=== PATIENT | female | born 1950 | race Caucasian/White ===

== ENCOUNTER → 2017-07-24 | Outpatient (CLI) | payer OTHER | END | disposition home or self-care (01) | LOC: LAB.O 14:34 | PROVIDERS: ATTEND Nurse Practitioner Family | DX: R07.9 Chest pain, unspecified (principal) ==

== ENCOUNTER 2017-10-18 13:59 | Emergency (ER) | payer OTHER ==
[2017-10-18 14:08] VITALS: TEMP 97.2
--- NOTE | 2017-10-18 14:22 | ED.PDOC ---
History of Present Illness - General Chief Complaint: Cardiovascular Problem Stated Complaint: chest pain Time Seen by Provider: 10/18/17 14:21 Source: patient Exam Limitations: no limitations - History of Present Illness Initial Comments: Megan Suarez 67 y/o female stated that for the last one week approximately had on and off right shoulder discomfort ,feeling of neck tightness and chest discomfort lasting for few minutes goes away and usually occurs while resting.She stated that when doing something that occupies her mind does not have it.At the er feels her throat a little bit tight.She DENIES CHEST PAIN SYMPTOMS.No cardiac problems or elevated blood pressure .Had ETT done 7 years ago when she had back pains and was normal.No diaphoresi,but slightly lightheaded this am. Timing/Duration: intermittent, other - almost a week ago-see hpi Improving Factors: nothing Worsening Factors: nothing Associated Symptoms: other - see hpi Allergies/Adverse Reactions: Allergies NO KNOWN ALLERGY Allergy (Verified 10/18/17 14:09) Review of Systems - Review of Systems EENTM: States: see HPI Cardiology: States: see HPI All other Systems: Reviewed and Negative, No Change from Baseline Past Medical History (General) - Patient Medical History Hx Congestive Heart Failure: No Hx Thyroid Disease: Yes Surgical History: other - right foot,bilateral cataract - Vaccination History Hx Influenza Vaccination: Yes Hx Pneumococcal Vaccination: No - Social History Hx Tobacco Use: Yes - for 10 years but quit 9 years ago Years Tobacco Use: 10 - quit 9 years ago Cigarettes Packs Per Day: 20 Hx Alcohol Use: No Hx Substance Use: No Hx Substance Use Treatment: No Hx Depression: No - Female History Patient is a Female of Child Bearing Age (10 -59 yrs old): No Family Medical History - Family History Father Hx Family Asthma: Yes - mom- age 95 Hx Cardiac Disease: Yes - parents Hx Family Cancer: Yes - dad -multiple myeloma Physical Exam - Physical Exam General Appearance: Alert, Comfortable, No apparent distress Eye Exam: bilateral normal Ears, Nose, Throat: hearing grossly normal, normal ENT inspection, normal pharynx Neck: non-tender, full range of motion, supple, normal inspection Respiratory: chest non-tender, lungs clear, normal breath sounds Cardiovascular/Chest: normal peripheral pulses, regular rate, rhythm, no murmur Peripheral Pulses: radial,right: 2+, radial,left: 2+ Gastrointestinal/Abdominal: normal bowel sounds, non tender, soft, no organomegaly Extremity: normal range of motion, non-tender, no pedal edema, no calf tenderness Neurologic: no motor/sensory deficits, alert, normal mood/affect, oriented x 3 Skin Exam: normal color, warm/dry Lymphatic: no adenopathy Progress - Progress Progress: 10/18/17 14:47 Last Vital Signs Temp 97.2 F L 10/18/17 14:00 Pulse 80 10/18/17 14:45 Resp 20 10/18/17 14:45 BP 139/79 10/18/17 14:45 Pulse Ox 100 10/18/17 14:45 - Results/Orders Results/Orders: Laboratory Tests 10/18/17 10/18/17 10/18/17 14:47 14:47 15:50 WBC 4.8 RBC 4.49 Hgb 13.4 Hct 39.4 MCV 87.7 MCH 30.0 MCHC 34.2 RDW 12.8 Plt Count 281 MPV 7.5 Absolute Neuts (auto) 2.50 Absolute Lymphs (auto) 1.70 Absolute Monos (auto) 0.40 Absolute Eos (auto) 0.20 Absolute Basos (auto) 0.00 Neutrophils % 52.9 Lymphocytes % 34.8 Monocytes % 7.6 Eosinophils % 4.1 Basophils % 0.6 PT 10.9 INR 0.960 PTT (SP) 34.1 D-Dimer, Quantitative < 230 Sodium 138 Potassium 3.5 L Chloride 103 Carbon Dioxide 28 Anion Gap 10.5 L BUN 13 Creatinine 0.58 L BUN/Creatinine Ratio 22.4 H Random Glucose 97 Serum Osmolality 275.7 Calcium 9.1 Magnesium 2.4 Total Bilirubin 0.4 Direct Bilirubin < 0.1 Indirect Bilirubin 0.3 AST 18 ALT 15 Alkaline Phosphatase 48 Creatine Kinase 111 CK-MB (CK-2) 2.4 CK-MB (CK-2) % Not Reportable Troponin I < 0.02 < 0.02 Serum Total Protein 7.1 Albumin 4.1 Recommended admission for OBS to hospital declined stating she lives close to the hospital and comes back if worsen stating she will follow up with her primary md in am She stated not feeling anything presently - EKG/XRAY/CT EKG: Sinus, nonspecific ST T wave Chg Comments: heart rate-78 XRAY: chest - no acute abnormalities Departure - Departure Clinical Impression: Chest discomfort Time of Disposition: 16:45 Disposition: Discharge to Home or Self Care Departure Forms: ED Discharge - Pt. Copy, Patient Portal Self Enrollment Instructions: DI for Chest Pain, DI for Atypical Chest Pain Referrals: Haven Schulte NP [Primary Care Provider] - 1-2 Weeks Additional Instructions: Continue with Baby aspirin 81 mg daily;Follow up with primary Md in am Call for appointment;RETURN TO ER as NEEDED
[2017-10-18] MEDS: ASPIRIN (CHEWABLE) 81 MG TAB PO ONE (14:42)
--- NOTE | 2017-10-18 15:04 | RAD ---
EXAM DESCRIPTION: Chest,1 View CLINICAL HISTORY: pain COMPARISON: None. FINDINGS: Cardiac silhouette is within normal limits. There is no focal parenchymal or pleural disease. Visualized osseous structures are within normal limits. IMPRESSION: No evidence of acute cardiopulmonary disease. Electronically signed by: Nima Bahena 10/18/2017 3:03 PM [facility]
[2017-10-18 16:54] VITALS: BP 127/81; O2SAT 99
== END 2017-10-18 16:54 | disposition home or self-care (01) ==
LOC: ER 13:59
DX: R07.89 Other chest pain (principal); E07.9 Disorder of thyroid, unspecified; Z87.891 Personal history of nicotine dependence

== ENCOUNTER 2019-11-21 11:59 | Emergency (ER) | payer OTHER ==
[2019-11-21] MEDS ORDERED: SODIUM CHLORIDE 0.9% (FLUSH) 10 ML SYG IV PRN (12:12)
[2019-11-21] MEDS ORDERED: SODIUM CHLORIDE 0.9% 1000ML 1,000 ML IVS ONE (12:13)
[2019-11-21] MEDS ORDERED: KETOROLAC TROMETHAMINE INJ 30 MG/ML VIAL IV ONE (12:13)
--- NOTE | 2019-11-21 12:15 | ED.PDOC ---
History of Present Illness - General Time Seen by Provider: 11/21/19 12:12 Source: patient - History of Present Illness Initial Comments: 69 yo female who presents with cc of upper back pain. Reports occurring on and off for a couple months. Recurred/worsening approx 2 hours ago while lifting something at home. Located to left upper back, constant, sharp, 2/10 severity, radiated around to her chest and with new onset chest tightness, no change with exertion or rest, took 2 baby aspirins with no relief. Reports some mild dyspnea as well. Also reported some mild "stomach" ache since this morning. No hx of similar sx's. No personal cardiac hx. Had a normal stress test 5-7 years ago. Allergies/Adverse Reactions: Allergies NO KNOWN ALLERGY Allergy (Verified 11/21/19 12:20) Home Medications: Ambulatory Orders Cyclobenzaprine HCl [Flexeril] 10 mg PO Q8H PRN 30 Days #30 tab 11/21/19 Review of Systems - Review of Systems Review of Systems: 11/21/19 12:15 as per HPI All other Systems: Reviewed and Negative Past Medical History (General) - Patient Medical History Hx Congestive Heart Failure: No Hx Thyroid Disease: Yes - Vaccination History Hx Influenza Vaccination: Yes Hx Pneumococcal Vaccination: No - Social History Hx Tobacco Use: Yes - for 10 years but quit 9 years ago Hx Alcohol Use: No Hx Substance Use: No Hx Substance Use Treatment: No Hx Depression: No Family Medical History - Family History Father Hx Family Asthma: Yes - mom- age 95 Hx Cardiac Disease: Yes - parents Hx Family Cancer: Yes - dad -multiple myeloma Physical Exam - Physical Exam General Appearance: Alert, No apparent distress Eye Exam: bilateral normal Ears, Nose, Throat: hearing grossly normal, normal ENT inspection, normal pharynx Neck: non-tender, full range of motion, supple, normal inspection Respiratory: lungs clear, normal breath sounds, no respiratory distress, no accessory muscle use, other - Chest tightness recreated on palpation of chest wall Cardiovascular/Chest: normal peripheral pulses, regular rate, rhythm, no edema, no gallop, no JVD, no murmur Peripheral Pulses: radial,right: 2+, radial,left: 2+ Gastrointestinal/Abdominal: non tender, soft, no organomegaly Back Exam: normal inspection, no CVA tenderness, no vertebral tenderness Extremity: normal range of motion, non-tender, normal inspection, no pedal edema, no calf tenderness Neurologic: inspector printed circuit boards II-XII nml as tested, no motor/sensory deficits, alert, normal mood/affect, oriented x 3 Skin Exam: normal color, warm/dry Progress - Progress Progress: 11/21/19 12:16 Upper back pain -suspect MSK in nature - acute muscle strain/spasm given history. Consider also ACS vs PNA vs other -vitals wnl on arrival, pt NAD, 2/ pain -check cardiac work-up, labs, CXR -1 L NS bolus, Toradol 30 mg IV 11/21/19 14:12 -Trop <0.02 x2 in ED over 2 hours. EKG pretty unremarkable. CXR shows no acute processes per my read. Pain is totally resolved now for 2 hours following IV fluids & Toradol. Vitals remain wnl. Remainder of labs pretty unremarkable as well. -Discussed findings with pt and diagnosis of acute upper back strain as well as expected course and continued home treatment. -Dc home in good condition. Advised close PCP f/u to discuss repeat stress testing as outpatient. Return warnings discussed at length. Denys Whitten MD Billing #[id number] - Results/Orders Results/Orders: 11/21/19 12:12 IV Care:Saline Lock per Protoc QSHIFT Telemetry ONCE Sodium Chloride 0.9% (Flush) [Saline Flush Syringe] 3 ml IV PRN PRN 11/21/19 12:15 EKG STAT 11/21/19 13:34 EKG Assessment ONCE 11/21/19 13:45 EKG STAT URINALYSIS Stat 11/22/19 09:00 Pulse Ox Daily Laboratory Results - last 24 hr 11/21/19 11/21/19 11/21/19 12:15 12:15 12:15 WBC 4.6 L RBC 4.71 Hgb 13.9 Hct 41.6 MCV 88.2 MCH 29.5 MCHC 33.4 RDW 13.4 Plt Count 261 MPV 8.1 Absolute Neuts (auto) 2.30 Absolute Lymphs (auto) 1.60 Absolute Monos (auto) 0.30 Absolute Eos (auto) 0.30 Absolute Basos (auto) 0.10 Neutrophils % 50.1 Lymphocytes % 34.0 Monocytes % 6.6 Eosinophils % 7.1 H Basophils % 2.2 H Sodium 138 Potassium 3.9 Chloride 99 L Carbon Dioxide 27 Anion Gap 15.9 BUN 25 H Creatinine 0.74 BUN/Creatinine Ratio 33.8 H Random Glucose 100 Serum Osmolality 280.2 Calcium 10.1 Total Bilirubin 0.6 AST 21 ALT 21 Alkaline Phosphatase 49 Troponin I < 0.02 B-Natriuretic Peptide 5.4 Serum Total Protein 7.0 Albumin 4.2 Globulin 2.8 Albumin/Globulin Ratio 1.5 11/21/19 13:41 WBC RBC Hgb Hct MCV MCH MCHC RDW Plt Count MPV Absolute Neuts (auto) Absolute Lymphs (auto) Absolute Monos (auto) Absolute Eos (auto) Absolute Basos (auto) Neutrophils % Lymphocytes % Monocytes % Eosinophils % Basophils % Sodium Potassium Chloride Carbon Dioxide Anion Gap BUN Creatinine BUN/Creatinine Ratio Random Glucose Serum Osmolality Calcium Total Bilirubin AST ALT Alkaline Phosphatase Troponin I < 0.02 B-Natriuretic Peptide Serum Total Protein Albumin Globulin Albumin/Globulin Ratio Departure - Departure Clinical Impression: Muscle strain of left upper back Qualifiers: Encounter type: initial encounter Qualified Code(s): S29.012A - Strain of muscle and tendon of back wall of thorax, initial encounter Time of Disposition: 14:15 Disposition: Discharge to Home or Self Care Condition: Good Instructions: DI for Chest Pain, Upper Back Pain (DC) Diet: resume usual diet Referrals: Haven Schulte NP [Primary Care Provider] - 1-2 Weeks Prescriptions: Cyclobenzaprine HCl [Flexeril] 10 mg PO Q8H PRN 30 Days #30 tab PRN Reason: Muscle Spasms Home Medications: Ambulatory Orders Cyclobenzaprine HCl [Flexeril] 10 mg PO Q8H PRN 30 Days #30 tab 11/21/19 Additional Instructions: Follow up closely with your PCP. Return if chest pain returns or worsens or other concerning symptoms develop such as pressure-like chest pain, shortness of breath, chest pain which worsens with exertion, etc... You may continue to take OTC ibuprofen 600 mg and Tylenol 650 mg every 6 hours as needed for acute upper back strain.
[2019-11-21] MEDS ORDERED: ASPIRIN (ENTERIC COATED) 325 MG TAB PO ONE (12:24)
[2019-11-21] MEDS ORDERED: ASPIRIN TABLET 325 MG TAB PO ONE (12:28)
--- NOTE | 2019-11-21 12:58 | RAD ---
EXAM DESCRIPTION: Chest,1 View CLINICAL HISTORY: 69 years Female, chest pain COMPARISON: Radiograph of the chest dated 10/18/2017. TECHNIQUE: AP radiograph of the chest was obtained. FINDINGS: Trachea is midline.The cardiomediastinal silhouette is normal in size. The pulmonary vasculature is within normal limits.The lungs are clear with no acute consolidation.No evidence of pleural effusions. IMPRESSION: No acute cardiopulmonary process. Electronically signed by: Beatriz Pendleton MD 11/21/2019 12:57 PM [facility]
[2019-11-21] MEDS ORDERED: CYCLOBENZAPRINE HCL 10 MG TAB PO ONE (15:09)
[2019-11-21 15:19] VITALS: BP 130/72; TEMP 98; O2SAT 99
== END 2019-11-21 15:18 | disposition home or self-care (01) ==
LOC: ER 11:59
DX: S29.012A Strain of muscle and tendon of back wall of thorax, initial encounter (principal); R10.9 Unspecified abdominal pain; E07.9 Disorder of thyroid, unspecified; Z87.891 Personal history of nicotine dependence; X50.0XXA Overexertion from strenuous movement or load, initial encounter; Y92.009 Unspecified place in unspecified non-institutional (private) residence as the place of occurrence of the external cause
CPT/HCPCS: 36415; 71045; 80053; 81001; 83880; 84484; 85025; 93005; J1885; J7030

== ENCOUNTER → 2020-07-05 | Outpatient (CLI) | payer OTHER | END | disposition home or self-care (01) | LOC: LAB.O 14:03 | PROVIDERS: ATTEND Nurse Practitioner Family | DX: R00.2 Palpitations (principal) ==